=== PATIENT | male | born 1980 | race Caucasian/White ===

== ENCOUNTER 2019-09-10 15:49 | Emergency (ER) | payer OTHER ==
[~2019-09-10] VITALS: Ht 175.3 cm; Wt 92.1 kg
--- NOTE | 2019-09-10 15:55 | NUR ---
CALLED IN ED WAITING ROOM. NO ANSWER.
--- NOTE | 2019-09-10 16:06 | NUR ---
CAME IN FOR HEAD INJURY, SCALP HEMATOMA, LFA LACERATION X 3 HOURS AGO. CAROLE ROBERTS. , TO ER BED 8, HOOKED TO MONITOR, CHANGED TO HOSP GOWN, WARM BLANKET PROVIDED, PATIENT AAO x 4, BREATHING EVEN AND UNLABORED, AWAITING MD BERNABE.
--- NOTE | 2019-09-10 17:16 | NUR ---
LOKESH JOSEPH AT BEDSIDE FOR SUTURING
[2019-09-10] MEDS ORDERED: LIDOCAINE 1%-EPI 1:100,000 20 ML VIAL TP ONE (17:30)
[2019-09-10] MEDS ORDERED: TDAP [DIPH/PERTUSSIS/TET] 0.5 ML VIAL IM ONE ×2 (17:30→17:43)
[2019-09-10] MEDS ORDERED: LIDOCAINE 1%-EPI 1:100,000 20 ML VIAL ONE (17:38)
--- NOTE | 2019-09-10 18:01 | NUR ---
WOUND DRESSING PLACED
--- NOTE | 2019-09-10 18:15 | NUR ---
Patient discharged to home in stable condition. Written and verbal after care instructions given. Patient verbalizes understanding of instruction.
[2019-09-10 18:17] VITALS: BP 142/94
== END 2019-09-10 18:17 | disposition home or self-care (01) ==
LOC: ER 16:02
DX: S51.812A Laceration without foreign body of left forearm, initial encounter (principal); S00.03XA Contusion of scalp, initial encounter; W20.8XXA Other cause of strike by thrown, projected or falling object, initial encounter; Y93.89 Activity, other specified; Y92.89 Other specified places as the place of occurrence of the external cause; Y99.8 Other external cause status
CPT/HCPCS: 12002; 90471; 90715; 99283; J3490